=== PATIENT | female | born 1980 ===

== ENCOUNTER 2021-10-10 06:50 | Day surgery (SDC) | payer OTHER ==
[2021-10-10] MEDS ORDERED: ULTRACET PO (12:22)
== END 2021-10-10 14:30 | disposition home or self-care (01) ==
LOC: CIR.AMB 06:50
PROVIDERS: ATTEND Surgery
DX: D17.1 Benign lipomatous neoplasm of skin and subcutaneous tissue of trunk (principal); E16.2 Hypoglycemia, unspecified; K21.9 Gastro-esophageal reflux disease without esophagitis